=== PATIENT | female | born 1945 | race Caucasian/White ===

== ENCOUNTER → 2018-07-11 | Outpatient (CLI) | payer OTHER ==
[~2018-07-11] MED LIST: HYDROCHLOROTH12.5 M1 PO; IBUPROFEN 800800 M1 PO; NORCO 10-325 T1 EACH PO; XARELTO10 MG PO
== END ==
LOC: MRI 09:42 → EDSTATUS 09:43 → MRI 12:20
DX: S96.812A Strain of other specified muscles and tendons at ankle and foot level, left foot, initial encounter (principal); X58.XXXA Exposure to other specified factors, initial encounter; Y93.89 Activity, other specified; Y92.89 Other specified places as the place of occurrence of the external cause; Y99.8 Other external cause status

== ENCOUNTER → 2020-03-18 | Outpatient (CLI) | payer OTHER ==
[~2020-03-18] MED LIST changes: +ASPIR 8181 MG PO; +COLACE 100 MG100 MG PO; +COZAAR 25 MG TA25 M1 PO; +HYDROCODON-ACE1 EAC7 PO; +MS CONTIN15 MG PO; +NEURONTIN 300M300 M2 PO; +ROBAXIN 750 MG750 MG PO
--- NOTE | 2020-03-19 14:17 | EKG ---
[facility] [place] [address] ELECTROCARDIOGRAM REPORT Name: AMAN HEMPHILL Room #: PRE [facility].Chandrika#: [id number] Admission: Attend Phys: Ankit Wiggins MD Discharge: Date of : 43 Report #: [id number] THIS REPORT FOR: cc: Chema Maurice MD, David B. MD Santiago,Brett [facility] ~ THIS REPORT FOR: //name// [facility] ED Test Date: 2020-03-18 Test Time: 11:03:34 Pat Name: AMAN HEMPHILL Department: Room: Gender: Leather Piece Inspector: kkbob white : 1945 Requested By: Ankit Wiggins Order Number: [id number] MD: Brett Muniz Measurements Intervals [place] Rate: 125 P: 69 [place]: 141 QRS: 6 QRSD: 82 T: 4 QT: 323 QTc: 466 Interpretive Statements Sinus tachycardia Abnormal R-wave progression, late transition Consider left ventricular hypertrophy Compared to ECG 02/11/2014 11:10:49 Sinus rhythm no longer present ST (T wave) deviation no longer present Electronically Signed On 03-19-2020 14:17:20 MAGNETIC OBSERVER by Brett Muniz [email or web address] <ELECTRONICALLY SIGNED> By: Brett Muniz MD, FACC 03/19/20 1417 1103 1103 Brett Muniz MD, FACC /EPI
== END ==
LOC: LAB
PROVIDERS: ATTEND Orthopaedic Surgery
DX: Z01.812 Encounter for preprocedural laboratory examination (principal); Z20.828 Contact with and (suspected) exposure to other viral communicable diseases; R00.0 Tachycardia, unspecified

== ENCOUNTER 2020-03-23 09:36 | Day surgery (SDC) | payer OTHER ==
[2020-03-18 11:19] LABS: HEMATOCRIT 40.9 % (37.0-47.0); HEMOGLOBIN 13.8 gm/dL (12.0-15.0); MCH 32.4 pg (26.0-34.0); MCHC 33.8 g/dL (28.0-37.0); RBC 4.27 mil/uL (4.20-5.00)
[2020-03-18 11:19] LABS: URINE BILIRUBIN NEGATIVE (Negative); URINE BLOOD TRACE (Negative); URINE CLARITY CLEAR; URINE COLOR YELLOW; URINE GLUCOSE-RANDOM* NEGATIVE (Negative); URINE KETONES NEGATIVE (Negative); URINE PROTEIN (DIPSTICK) NEGATIVE (Negative); URINE SPECIFIC GRAVITY <= 1.005 (1.005-1.035); URINE UROBILINOGEN 0.2 E.U./dl (0.2-1.0)
[2020-03-18 11:21] LABS: URINE LEUKOCYTES-REFLEX 3+ (Negative); URINE NITRITE-REFLEX POSITIVE (Negative)
[2020-03-18 11:29] LABS: ALBUMIN 4.1 g/dL (3.4-5.0); CALCIUM 8.8 mg/dL (8.5-10.1); CREATININE 0.8 mg/dL (0.6-1.0); POTASSIUM 3.9 mmol/L (3.5-5.1)
[2020-03-18 11:34] LABS: PROTIME 10.2 Seconds (9.3-11.4)
[2020-03-18 11:45] LABS: CASTS None Seen /LPF (None Seen); CRYSTALS None Seen /LPF (None Seen); SQUAMOUS 0-3 Few /LPF (0-3)
[2020-03-18 11:46] LABS: BACTERIA-REFLEX 1-9 Few /HPF (None Seen); URINE RBC 0-2 Rare /HPF (0-2)
--- NOTE | 2020-03-18 13:37 | EKG ---
[facility] [place] [address] ELECTROCARDIOGRAM REPORT Name: HEMPHILLAMAN Room #: PRE [facility] [place]..#: [id number] Admission: Attend Phys: Ankit Wiggins MD Discharge: Date of : 43 Report #: [id number] THIS REPORT FOR: cc: Chema Maurice MD, David B. MD Santiago, Patrick MD [facility] ~ THIS REPORT FOR: //name// [facility] Test Date: 2020-03-18 Test Time: 11:16:36 Pat Name: AMAN HEMPHILL Department: Room: Gender: F Loader Operator Supervisor: DU : 1945 Requested By: Ankit Wiggins Order Number: [id number] MD: Brett Muniz Measurements Intervals [place] Rate: 64 P: 5 [place]: 185 QRS: -5 QRSD: 92 T: -7 QT: 396 QTc: 409 Interpretive Statements Sinus rhythm Borderline T abnormalities, inferior leads Baseline wander in lead(s) I,aVL Compared to ECG 02/11/2014 11:10:49 T-wave abnormality now present ST (T wave) deviation no longer present Electronically Signed On 03-18-2020 13:37:01 SALES DEPARTMENT CLERK by Brett Muniz [email or web address] <ELECTRONICALLY SIGNED> By: Brett Muniz MD, FACC 03/18/20 1337 15 111 Brett Muniz MD, FACC /EPI
[~2020-03-23] VITALS: Ht 165.1 cm; Wt 76.7 kg
[~2020-03-23 09:36] MED LIST changes: -ASPIR 8181 MG PO; -COLACE 100 MG100 MG PO; -HYDROCODON-ACE1 EAC7 PO; -MS CONTIN15 MG PO; -NEURONTIN 300M300 M2 PO; -ROBAXIN 750 MG750 MG PO
[2020-03-23 10:33] VITALS: BP 137/89
[2020-03-23 14:50] VITALS: BP 153/94
--- NOTE | 2020-03-23 16:54 | NUR ---
PATIENT ADMITTED TO ROOM 435, CAME FROM POST OP REPORT RECIEVED.PT ALERT XS 4 LIKES TO TALK STATES I LIVE ALONE AND WHEN I GET THE CHANCE TO TALK I DO. V.S. 98.1 20 72 153/94 O2 SAT = 100% 2 L/NC PT IS REGULAR DIET FOR DINNER IS DRINKING FLUIDS. GIVEN PRN PAIN MED ORDERED. WEIGHT = 169.0 HEIGHT = 5' 5 " HAS PICCO DRESSING TO RIGHT HIP [facility] AND SCDS IN PLACE FLUIDS INFUSING ORDERED. ICE PACK TO RIGHT HIP.
[2020-03-23 19:12] VITALS: BP 127/80
--- NOTE | 2020-03-24 04:27 | NUR ---
PT ALERT AND ORIENTED. NICHOL DRSG TO R HIP IS C/D/I. ICE RICHA IN PLACE WELL SCDS. PT ABLE TO GET UP TO THE BSC. VOIDING WITH NO DIFFICULTIES. AFEBRILE. PAIN CONTROLLED WITH HYDROCODONE. CALL LIGHT WITHIN REACH.
[2020-03-24 06:59] LABS: HEMATOCRIT 32.8 % (37.0-47.0); MCH 32.5 pg (26.0-34.0); MCHC 33.6 g/dL (28.0-37.0); MCV 96.6 fL (80.0-100.0); RBC 3.39 mil/uL (4.20-5.00); RDW 13.2 % (10.5-14.5); WBC 13.5 thou/uL (4.0-11.0)
--- NOTE | 2020-03-24 10:59 | NUR ---
PT IS AOX4, VSS, PAIN IN RIGHT HIP CONTROLLED WITH ORAL PAIN ANALGESIC. PT IS UP WITH STANDBY ASSIST. WORKING WELL WITH PT/OT. IV DISCONTINUED, PT GOING HOME AFTER AFTERNOON THERAPY SESSION. PT DENIES N/V, NICHOL DRESSING ON RIGHT HIP APPEARS CDI. ARMOND DHILLON ARE ON BLE. CALL LIGHT IN REACH, WILL CONTINUE TO MONITOR.
--- NOTE | 2020-03-24 11:02 | NUR ---
ASSESSMENT: CM REVIEWED CHART. PT IS S/P R DAGO. PT REPORTS LIVING IN A HOUSE ALONE. PT REPORTS TWO STEPS WITH NO HANDRAIL TO ENTER AND NO STEPS SHE HAS TO USE ONCE INSIDE. PT REPORTS THAT HER SON IS VERY SUPPORTIVE AND HELPFUL AND CAN ASSIST HER IF NEEDED. PT REPORTS SHE NORMALLY IS INDEPENDENT WITH ADLS AND AMBULATION BUT DOES HAVE A CANE AND WALKER AT HOME THAT SHE WILL USE. PT REPORTS SHE HAS OUTPATIENT THERAPY ARRANGED AT [facility] FOR 1PM TOMORROW. PT REPORTS HAVING A GRAB BAR IN THE SHOWER. PT IS DOING WELL WITH THERAPY AND POSSIBLE DISCHARGE LATER THIS AFTERNOON. PT REPORTS HAVING NO NEEDS FROM CM.
[2020-03-24 15:03] VITALS: BP 127/80
--- NOTE | 2020-03-25 08:16 | O ---
[facility] [place] [address] OPERATIVE REPORT Name: AMAN HEMPHILL Room #: DEP [facility].#: [id number] Admission: 03/23/20 Attend Phys: Ankit Wiggins MD Discharge: 03/24/20 Date of : 43 Report #: [id number] THIS REPORT FOR: cc: Chema Maurice MD, David B. MD Abraham,Ankit Garcia MD ~ CC: Chema Wiggins DATE OF SERVICE: 03/23/2020 PREOPERATIVE DIAGNOSIS: Right hip osteoarthritis. POSTOPERATIVE DIAGNOSIS: Right hip osteoarthritis. PROCEDURE: Right total hip arthroplasty. SURGEON: Ankit Wiggins MD. FACIAL OPERATOR: Dominique Cornelius PA-C. INDICATIONS FOR FACIAL OPERATOR: Throughout the case, extensive retraction and manipulation of the hip including dislocation and reduction was required. This was afforded by my medical office assistant. ANESTHESIA: LMA. IMPLANTS: Segovia and Nephew size 12 high offset Synergy press fit stem, a size 52 R3 acetabular cup with 2 acetabular screws, size 36+0 cobalt chrome head and an Arthrex FiberTape for prophylactic femur fixation. ESTIMATED BLOOD LOSS: 100 mL. COMPLICATIONS: None. SPECIMENS: None. CONDITION UPON LEAVING THE OPERATING ROOM: Stable. INDICATIONS FOR PROCEDURE: The patient is a 74-year-old female with right hip osteoarthritis. She had failed conservative measures for this and after discussion with her, she elected for right total hip arthroplasty. DESCRIPTION OF PROCEDURE: Risks, benefits, alternatives, complications were discussed in detail with the patient including but not limited to risk of anesthesia, risk of damage to nerves, arteries, blood vessels, risk for [facility] [address] [place] [address] OPERATIVE REPORT Name: AMAN HEMPHILL Room #: DEP [facility].#: [id number] Admission: 03/23/20 Attend Phys: Ankit Wiggins MD Discharge: 03/24/20 Date of : 43 Report #: [id number] infection, bleeding, risk for leg length discrepancy, instability and need for reoperation. Informed consent was obtained from the patient. The right hip was appropriately marked in the preoperative holding area. IV Ancef was given for preoperative antibiotics. She was brought to the operating room and placed in the supine position on operating room table. LMA anesthesia was induced without complication. She was placed in the left lateral decubitus position with the right hip uppermost. Right hip and lower extremity were prepped and draped in normal sterile fashion. Timeout was performed properly identifying the patient and procedure as well as the instrumentation and implants. All in the operating room were in agreement. Standard posterior approach to the hip was made with 10 blade through the skin. Dissection was taken down to the fascia with Bovie cautery and Conrad elevator was used to clean off the fascia. Fresh 10 blade was used to make a fascial incision. This was taken proximally and distally with curved Tovar scissors. Charnley retractor was placed. Trochanteric bursa was taken down with Bovie cautery. Piriformis tendon was identified, tagged and taken down with Bovie cautery. Short external rotators were also taken down with Bovie cautery. Capsulotomy was made and capsule ends were tagged for later repair. Hip was dislocated. There was obvious osteoarthritic change of the femoral head. A femoral neck cut was made 1 cm proximal to lesser trochanter based on preoperative templating. The femoral head was removed. Deep acetabular retractors were placed. Labrum was removed sharply. Pulvinar was removed with Bovie cautery. Acetabulum was sequentially reamed up to a size 52, at which point there was excellent bleeding cancellous bone. A size 51 trial cup was placed, found to have a good fit. A final size 52 R3 acetabular cup was placed and seated. Two acetabular screws were placed for backup fixation and polyethylene liner for a 36 head was placed. Attention was then turned to the femur. One cerclage Arthrex FiberTape was placed around the proximal femur for prophylactic fixation. The femur was reamed and broached up to a size 12, at which point the size 12 was stable, was trialed with a high offset neck and a 36+0 head. Hip was reduced, taken through range of motion, found to be stable, found to have equal leg lengths. Hip was dislocated. The broach was removed and final size 12 high offset Synergy press-fit stem was placed and seated. This was trialed again with a 36+0 head. Hip was reduced, taken through range of motion, found to be stable, found to have equal leg lengths. Hip was dislocated one last time and a final size 36+0 cobalt chrome head was placed. Hip was reduced, taken through range of motion, found to be stable, found to have equal leg lengths. Hip was thoroughly irrigated with normal saline. Periarticular injection consisting of morphine, ropivacaine, epinephrine and Toradol was placed over the capsule. A gram of vancomycin was placed deep in the joint. The capsule and piriformis were repaired with 0 FiberWire. Fascia was closed with 0 Vicryl, skin was closed with 2-0 Vicryl, 3-0 Monocryl. Dermabond and a NICHOL dressing were applied. The patient tolerated this [facility] [address] [place] [address] OPERATIVE REPORT Name: AMAN HEMPHILL Roger Room #: [facility]P [facility].#: [id number] Admission: 03/23/20 Attend Phys: Ankit Wiggins MD Discharge: 03/24/20 Date of : 43 Report #: [id number] procedure well and went to recovery room under care of anesthesia postoperatively. <ELECTRONICALLY SIGNED> By: Ankit Wiggins MD 03/25/20 0816 1607 1755 Ankit Wiggins MD /nt
== END 2020-03-24 16:28 | disposition home or self-care (01) ==
LOC: OR 09:36 → 4S 14:41 → OR 03-24 16:28
PROVIDERS: ATTEND Orthopaedic Surgery
DX: M16.11 Unilateral primary osteoarthritis, right hip (principal); M25.551 Pain in right hip; I10 Essential (primary) hypertension; G43.909 Migraine, unspecified, not intractable, without status migrainosus; G20 Parkinson's disease; Z98.890 Other specified postprocedural states; Z79.899 Other long term (current) drug therapy; Z86.73 Personal history of transient ischemic attack (TIA), and cerebral infarction without residual deficits; Z96.651 Presence of right artificial knee joint; Z90.710 Acquired absence of both cervix and uterus; Z98.41 Cataract extraction status, right eye; Z98.42 Cataract extraction status, left eye; Z88.8 Allergy status to other drugs, medicaments and biological substances
CPT/HCPCS: 27130; C1713; 10102; 50010; 50101; 50382; 50414; 53000; 53078; 53367; 54118; 56524; 56527; 56528; 56530; 57095; 57103; 62110; 62900; 70005

== ENCOUNTER 2020-03-24 22:11 | Inpatient (IN) | payer OTHER ==
[~2020-03-24] VITALS: Ht 165.1 cm; Wt 81.2 kg
[2020-03-24 22:13] VITALS: BP 142/63
[2020-03-25 01:04] LABS: ABSOLUTE NEUTROPHILS 8.5 thou/uL (1.4-8.2); BASOPHILS 0.3 % (0.0-2.0); EOSINOPHILS 0.5 % (0.0-3.0); HEMATOCRIT 31.2 % (37.0-47.0); HEMOGLOBIN 10.6 gm/dL (12.0-15.0); LYMPHOCYTES 20.7 % (24.0-44.0); MCH 32.5 pg (26.0-34.0); MCHC 33.9 g/dL (28.0-37.0); MCV 95.8 fL (80.0-100.0); MONOCYTES 8.4 % (1.0-8.0); PLATELET COUNT 226 thou/uL (150-400); POLYS 70.1 % (36.0-66.0); RBC 3.26 mil/uL (4.20-5.00); RDW 13.2 % (10.5-14.5); WBC 12.1 thou/uL (4.0-11.0)
[2020-03-25 01:13] LABS: CALCIUM 8.4 mg/dL (8.5-10.1); POTASSIUM 3.3 mmol/L (3.5-5.1)
[2020-03-25 01:19] LABS: URINE BILIRUBIN NEGATIVE (Negative); URINE BLOOD NEGATIVE (Negative); URINE CLARITY CLEAR; URINE COLOR YELLOW; URINE GLUCOSE-RANDOM* NEGATIVE (Negative); URINE KETONES NEGATIVE (Negative); URINE LEUKOCYTES-REFLEX NEGATIVE (Negative); URINE NITRITE-REFLEX NEGATIVE (Negative); URINE PROTEIN (DIPSTICK) NEGATIVE (Negative); URINE UROBILINOGEN 0.2 E.U./dl (0.2-1.0)
[2020-03-25 02:47] VITALS: BP 126/67
[2020-03-25 02:53] VITALS: BP 120/63
--- NOTE | 2020-03-25 04:39 | NUR ---
PT ARRIVED ON THE UNIT THIS MORNING. A&OX4. WITH C/O PAIN IN RT HIP. IV FENTANYL GIVEN. PT ON BEDREST. EXT FEMALE CATH IN PLACE AND DRAINING. RT HIP NICHOL DRESSING C/D/I. ADMISSION DONE AND PT ORIENTED TO THE UNIT. NO SKIN ISSUES. VSS. CLEAR LUNGS SOUND. TEDHOSE ON BLE. DENIES NAUSEA/VOMITING. FALL PREC IN PLACE AND CALL LIGHT IN REACH WILL CONT WITH POC TILL EOS.
[2020-03-25 05:31] VITALS: BP 119/72
[2020-03-25 07:02] LABS: HEMATOCRIT 31.9 % (37.0-47.0); HEMOGLOBIN 10.6 gm/dL (12.0-15.0); MCH 32.1 pg (26.0-34.0); MCHC 33.3 g/dL (28.0-37.0); MCV 96.3 fL (80.0-100.0); RBC 3.31 mil/uL (4.20-5.00); RDW 13.5 % (10.5-14.5); WBC 10.7 thou/uL (4.0-11.0)
[2020-03-25 07:14] LABS: CALCIUM 8.5 mg/dL (8.5-10.1); CREATININE 0.7 mg/dL (0.6-1.0); POTASSIUM 3.5 mmol/L (3.5-5.1)
[2020-03-25 08:05] VITALS: BP 129/71
--- NOTE | 2020-03-25 12:15 | NUR ---
I have reviewed the documentation by GINO GEORGE from 03/24/20 to 03/24/20 and I concur with it. AMY HAQUE
--- NOTE | 2020-03-25 13:07 | NUR ---
ASSESSMENT: CM REVIEWED CHART. PT WAS JUST DISCHARGED ON 03/24 S/P R DAGO. PT REPORTS SHE FELT SOMETHING BUCKLE WHEN GETTING IN THE CAR AND WAS IN PAIN AND RETURNED TO [facility]. PT STATES THAT SHE LIVES IN A HOME ALONE. PT REPORTS TWO STEPS WITH NO HANDRAIL TO ENTER AND NO STEPS SHE HAS TO USE ONCE INSIDE. PT REPORTS THAT HER SON IS VERY SUPPORTIVE AND HELPFUL AND CAN ASSIST HER IF NEEDED. PT REPORTS SHE NORMALLY IS INDEPENDENT WITH ADLS AND AMBULATION BUT DOES HAVE A CANE AND WALKER AT HOME THAT SHE WILL USE. PT HAD OUTPATIENT THERAPY ARRANGED AT [facility]. PT REPORTS HAVING A GRAB BAR IN THE SHOWER. PT IS TO HAVE CT AND WILL WORK WITH THERAPY TO DETERMINE DISCHARGE NEEDS. CM WILL CONTINUE TO FOLLOW TO ASSIST NEEDED.
--- NOTE | 2020-03-25 15:26 | NUR ---
Assumed care of pt. at 0700. Pt. was calm and cooperative. Pt. complained of pain at a "12". Dr. Barth notified, med given, pain relieved partially. Pt. asked about when she could speak with Dr. Wiggins. Kate ROSARIO contacted, notified Feliciano would come by after their surgery.
[2020-03-25 16:00] VITALS: BP 128/82
[2020-03-25 19:14] VITALS: BP 136/72
[2020-03-26] VITALS (7 sets, daily range): BP systolic 105–128; BP diastolic 63–72
--- NOTE | 2020-03-26 02:29 | NUR ---
ASSESSED AT START OF SHIFT. PT IN BED. C/O PAIN 12/15 MANAGED WITH IV AND PO MEDS. PT TO HAVE SX TOMORROW. NPO AT MIDNIGHT. IV INTACT AND SL. EXT FEMASLE CATH IN PLACE. DENIES N/V FALL PREC IN PLACE AND CALL LIGHT IN REACH WILL CONT TO MONITOR
--- NOTE | 2020-03-26 10:04 | NUR ---
ASSUMED CARE AT 0700. PATIENT IS ALERT AND ORIENTED X4. PATIENT HAS FX RIGHT FEMUR. PICCO DRESSING IN PLACE. PATIENT REMAINS NPO FOR SURG THIS AFTERNOON. FALL AND SAFETY PROTOCOLS IN PLACE. C/O FEMUR PAIN. MEDICATED WITH PRN PAIN MED IVP. PATIENT CONTINUES ON BR AT THIS TIME. S.L. IN PATIENTS LEFT AC PATENT AND INTACT. WILL CONTINUE TO MONITER.
--- NOTE | 2020-03-26 12:49 | NUR ---
on-going assessment: CM REVIEWED CHART. PT IS TO HAVE REVISION OF R DAGO STEM THIS AFTERNOON. PT THEN WILL WORK WITH PT/OT. 5N IS FOLLOWING PATIENT. CM WILL CONTINUE TO FOLLOW TO ASSIST NEEDED.
--- NOTE | 2020-03-26 18:33 | NUR ---
4563 PATIENT RETURNED FROM SURGERY. PATIENT IS ALERT AND ORINETED X4. PATIENT FORTUNE, ELECTRICAL INSTALLER ARE EQUAL. LUNGS ARE CLEAR AND DEMINISHED. PATIENT STARTED ON RESPITORY TX. IV FLUIDS D5 1/2NS STARTED AT 100 CC/HR. IV MSO4 AND PEPCID GIVEN. REQUESTED. NICHOL DRESSING INTACT. REGULAR DINNER SERVED. IV IN PATIENTS LEFT AC. IV SITE WITHOUT REDNESS OR SWELLING. WILL CONTINUE TO MONITER.
[2020-03-27 03:37] LABS: HEMATOCRIT 28.8 % (37.0-47.0); HEMOGLOBIN 9.9 gm/dL (12.0-15.0); MCH 32.7 pg (26.0-34.0); MCHC 34.2 g/dL (28.0-37.0); MCV 95.4 fL (80.0-100.0); RBC 3.02 mil/uL (4.20-5.00); RDW 12.9 % (10.5-14.5); WBC 9.9 thou/uL (4.0-11.0)
--- NOTE | 2020-03-27 04:09 | NUR ---
ASSESSMENT COMPLETED.PT IS PLEASNT AND COOPERATIVE. EXTERNAL CATH IN PLACE AND SHE IS VOIDING ADEQUATELY.R HIP WITH DRSG C/D/I. R FOOT WITH GOOD CSM STABLE ON ROOM AIR. AFEBRILE, CALL LIGHT WITHIN REACH.
[2020-03-27 04:26] VITALS: BP 103/68
[2020-03-27 07:00] VITALS: BP 123/74
[2020-03-27] MEDS ORDERED: HYDROCODON-ACE1 EAC7 PO (10:32)
[2020-03-27] MEDS ORDERED: MS CONTIN15 MG PO (10:32)
[2020-03-27] MEDS ORDERED: NEURONTIN 300M300 M2 PO (10:32)
[2020-03-27] MEDS ORDERED: COLACE 100 MG100 MG PO (10:32)
[2020-03-27] MEDS ORDERED: ROBAXIN 750 MG750 MG PO (10:32)
[2020-03-27] MEDS ORDERED: ASPIR 8181 MG PO (10:32)
--- NOTE | 2020-03-27 10:54 | NUR ---
ON-GOING ASSESSMENT: CM REVIEWED CHART AND SPOKE WITH ATTENDING WELL 5N LIASON. PT IS MEDICALLY STABLE FOR DISCHARGE TODAY AND 5N CAN ACCEPT HER. PT REPORTS SHE WILL NOTIFY HER SON. LIASON IS AWARE THAT ORDERS ARE IN AND PATIENT IS TO TRansfer to ACUTE REHAB TODAY.
[2020-03-27 15:40] VITALS: BP 101/61
--- NOTE | 2020-03-27 17:14 | NUR ---
PT IS AOX4, VSS, PAIN CONTROLLED WITH ORAL PAIN ANALGESIC FOR HIP. IV IN LEFT AC IS PATENT/SL. REHAB ASKED TO KEEP IV, PT UP TO BSC WITH STANDBY ASSIST AND WALKER. PT CALLS APPROPRIATELY. DRESSING ON RIGHT HIP IS CDI. PT D/C TO REHAB UNIT. BELONGINGS PACKED AND SENT WITH PT.
--- NOTE | 2020-03-31 12:39 | O ---
[facility] [place] [address] OPERATIVE REPORT Name: AMAN HEMPHILL Room #: 434-P [facility] M.R.#: [id number] Admission: 03/25/20 Attend Phys: Jerry Barth MD Discharge: 03/27/20 Date of : 43 Report #: [id number] THIS REPORT FOR: cc: Chema Maurice MD, David B. MD Abraham, Scott M. MD ~ CC: Jerry Maurice DATE OF SERVICE: 03/26/2020 PREOPERATIVE DIAGNOSIS: Right proximal femur repair of periprosthetic total hip arthroplasty fracture. POSTOPERATIVE DIAGNOSIS: Right proximal femur repair of periprosthetic total hip arthroplasty fracture. PROCEDURES: 1. Revision of right total hip arthroplasty stem only. 2. ORIF, right proximal femur with cerclage cables. ESTIMATED BLOOD LOSS: 150 mL. IMPLANTS: Segovia and Nephew size 14 high offset cemented Synergy stem with a size 36, -3 cobalt chrome and 3 Accord cables for femoral fixation. COMPLICATIONS: None. SPECIMENS: None. CONDITION UPON LEAVING THE OPERATING ROOM: Stable. INDICATIONS FOR PROCEDURE: The patient is a 74-year-old female who is 4 days out from a right total hip arthroplasty. She was discharged home and on the evening of discharge, she has noted a buckling of her leg and increasing thigh pain. She was readmitted to the hospital and found to have a periprosthetic proximal femoral fracture around her femoral stem that was nondisplaced. After discussion with her, she elected for revision hip arthroplasty fixation of the proximal femur fracture. DESCRIPTION OF PROCEDURE: Risks, benefits, alternatives, complications were discussed in detail with the patient including but not limited to risk of anesthesia, risk of damage to nerves, arteries, blood vessels, risk for infection, bleeding, risk for continued hip pain, leg length discrepancy, instability and need for reoperation. Informed consent was obtained from the patient. The right hip was appropriately marked in the preoperative holding [address] [address] OPERATIVE REPORT Name: KANCHANAMAN Roger Room #: 434-P [facility] ..#: [id number] Admission: 03/25/20 Attend Phys: Jerry Barth MD Discharge: 03/27/20 Date of : 43 Report #: [id number] area. IV Ancef was given for preoperative antibiotics. She was brought to the operating room and placed in supine position on operating room table. LMA anesthesia was induced without complication. She was then placed in the left lateral decubitus position with the right hip uppermost. Right hip and lower extremity were prepped and draped in normal sterile fashion. Timeout was performed properly identifying the patient and procedure as well as the instrumentation and implants. All in the operating room were in agreement. Previous incision was used and this was opened with a 10 blade through the skin. Dissection was taken down to the fascia with Bovie cautery. Fascial incision was opened with a 10 blade and taken distally along the IT band. This was a nondisplaced fracture and it was decided to pass cerclage cables first. The vastus lateralis was split longitudinally and a cable passer was used to place 2 cables distal to the lesser trochanter, 1 cable proximal to lesser trochanter. These were then tensioned and locked in place. The hip was then dislocated and the femoral stem was removed. The integrity of the femur was assessed and found to have good integrity based on the fixation of the cables that were placed and the femur was then reamed and broached up to a size 14 trial with a high offset neck and a 36, +0 head. Hip was reduced, taken through range of motion, found to be stable. A cross-table AP x-ray was taken to verify adequate placement of the broach as well as hindu of the proximal femur as was the case. Hip was dislocated and the femoral canal was repaired for cement, a size 14 high offset Synergy cemented stem was then cemented in place using standard cementation techniques. After the cement cured, this was trialed with a 36, +0 head and then a 36, -3 head and 36, -3 head had better stability and leg lengths. Hip was dislocated and a final size 36, -3 cobalt chrome head was placed. Hip was reduced, taken through range of motion, found to be stable, found to have equal leg lengths. The wound was thoroughly irrigated with normal saline. The capsule was repaired with 0 FiberWire. The fascia was closed with 0 Vicryl, skin was closed with 2-0 Vicryl, skin staple and a NICHOL dressing was applied. The patient tolerated this procedure well and went to recovery room under care of anesthesia postoperatively. <ELECTRONICALLY SIGNED> By: Ankit Wiggins MD 03/31/20 1239 2104 0041 Ankit Wiggins MD /cole
== END 2020-03-27 17:12 | DRG 464 ==
LOC: ER 22:11 → 4S 03-25 02:16 → EROBS 03-25 02:16 → 4S 03-25 02:54
PROVIDERS: Emergency Medicine; Nurse Practitioner Family; Orthopaedic Surgery; ADMIT Hospitalist; ATTEND Hospitalist
PROC: 0QS604Z Reposition Right Upper Femur with Internal Fixation Device, Open Approach (ICD-10-PCS; principal; 2020-03-26)
PROC: 0SP90JZ Removal of Synthetic Substitute from Right Hip Joint, Open Approach (ICD-10-PCS; principal; 2020-03-26)
DX: M97.01XA Periprosthetic fracture around internal prosthetic right hip joint, initial encounter (principal); D62 Acute posthemorrhagic anemia; I10 Essential (primary) hypertension; G43.909 Migraine, unspecified, not intractable, without status migrainosus; Z96.651 Presence of right artificial knee joint; Z96.641 Presence of right artificial hip joint; Z60.2 Problems related to living alone; M81.0 Age-related osteoporosis without current pathological fracture; K59.00 Constipation, unspecified; G47.00 Insomnia, unspecified; E87.6 Hypokalemia; Z90.710 Acquired absence of both cervix and uterus; Z86.73 Personal history of transient ischemic attack (TIA), and cerebral infarction without residual deficits; Z98.42 Cataract extraction status, left eye; Z98.41 Cataract extraction status, right eye; Z88.6 Allergy status to analgesic agent; Z88.8 Allergy status to other drugs, medicaments and biological substances; Z87.891 Personal history of nicotine dependence; Z79.899 Other long term (current) drug therapy; Z79.82 Long term (current) use of aspirin
CPT/HCPCS: 10102; 50010; 50101; 50382; 50414; 51057; 51130; 51225; 51226; 53000; 53078; 54118; 56460; 56524; 56527; 56528; 56530; 57095; 57103; 62110; 62900; 70005

== ENCOUNTER 2020-03-27 13:26 | Inpatient (IN) | payer OTHER ==
[~2020-03-27] VITALS: Ht 165.1 cm; Wt 74.8 kg
[~2020-03-27 13:26] MED LIST changes: +ASPIR 8181 MG PO; +COLACE 100 MG100 MG PO; +HYDROCODON-ACE1 EAC7 PO; +MS CONTIN15 MG PO; +NEURONTIN 300M300 M2 PO; +ROBAXIN 750 MG750 MG PO
[2020-03-27 17:00] VITALS: BP 121/69
--- NOTE | 2020-03-27 18:17 | NUR ---
PT ARRIVED AT 1700 FROM 4S. PT IS ALERT AND ORIENTED* 4, PLEASANT. VITALS ARE STABLE. PT DENIES PAIN AT THIS TIME. RIGHT HIP INCISION REMAINS DRY AND INTACT. PT ATE 100% OF HER DINNER, DENIES N&V, GOOD APPETITE. TRANSFERED VIA RECLINER, NOT ABLE TO GET UP AT THIS TIME. FALL PRECAUTIONS IN PLACE. HOURLY ROUND. CALL LIGHT WITHIN REACH
[2020-03-27 22:00] VITALS: BP 105/60
--- NOTE | 2020-03-28 04:21 | NUR ---
ASSUMED CARE APPROX 1900 EVENING 03/27. PT SITTING IN RECLINER AT CHANGE OF SHIFT, ALERT AND ORIENTED X4, APPROPRIATE AND COOPERATIVE. PT UP TO BATHROOM WITH WALKER TO VOID BEFORE GETTING INTO BED AT HS. PT TOOK HS MEDS WITH WATER TOLERATING WELL. DRESSING TO RIGHT HIP C/D/I. PT APPEARS TO BE SLEEPING SOUNDLY WITH HOURLY ROUNDING CHECKS. BED ALARM ON AND CALL LIGHT IN REACH. WILL CONTINUE TO MONITOR.
[2020-03-28 05:23] LABS: HEMATOCRIT 26.7 % (37.0-47.0); MCH 32.7 pg (26.0-34.0); MCHC 33.9 g/dL (28.0-37.0); MCV 96.5 fL (80.0-100.0); RBC 2.76 mil/uL (4.20-5.00); RDW 13.3 % (10.5-14.5); WBC 9.8 thou/uL (4.0-11.0)
[2020-03-28 05:59] LABS: CALCIUM 8.5 mg/dL (8.5-10.1); CREATININE 0.8 mg/dL (0.6-1.0); POTASSIUM 4.1 mmol/L (3.5-5.1)
[2020-03-28 06:48] LABS: FOLIC ACID 9.2 ng/mL (8.6-58.9)
[2020-03-28 07:15] VITALS: BP 116/76
[2020-03-28 19:19] VITALS: BP 122/70
--- NOTE | 2020-03-28 20:09 | NUR ---
ASSUMED CARE OF PT AT 0700. PT IS A&OX4 AND VITAL SIGNS ARE STABLE. PT REPORTS PAIN TO RIGHT HIP, MEDICATION ORDERS CHANGED THIS SHIFT AND PT REPORTS BETTER PAIN CONTROL AT THIS TIME. PT REPORTED NAUSEA THIS SHIFT, REPORTED NO BM IN 5+DAYS, SUPPOSITORY AND BOWEL MEDICATIONS PROVIDED AND PT HAD SEVERAL LARGE BOWEL MOVEMENTS THIS AFTERNOON. NICHOL DRESSING IN PLACE. PT CALLS APPROPRIATELY FOR ASSISTANCE. FALL PRECAUTIONS IN PLACE AND NURSING WILL CONTINUE TO MONITOR.
--- NOTE | 2020-03-29 02:25 | NUR ---
PT ASSESSMENT COMPLETED AND VSS. MEDS GIVEN ORDERED AND WELL TOLERATED. FALL PRECAUTIONS IN PLACE. UP TO THE BSC WITH ASST/GAIT/WALKER. PT HAS A LOT OF PAIN WHEN GETTING TO THE BSC. VOIDING LARGE AMOUNT OF YELLOW URINE. PRN AND SCHEDULED PAIN MEDICATION HELPFUL. NICHOL DRESSING DRY AND INTACT. SLEEPING WELL. WILL CONTINUE TO MONITOR FREQUENTLY.
[2020-03-29 05:26] LABS: ABSOLUTE NEUTROPHILS 4.9 thou/uL (1.4-8.2); BASOPHILS 0.5 % (0.0-2.0); EOSINOPHILS 2.3 % (0.0-3.0); HEMATOCRIT 26.5 % (37.0-47.0); HEMOGLOBIN 9.1 gm/dL (12.0-15.0); LYMPHOCYTES 33.1 % (24.0-44.0); MCHC 34.4 g/dL (28.0-37.0); MCV 95.8 fL (80.0-100.0); PLATELET COUNT 288 thou/uL (150-400); POLYS 54.1 % (36.0-66.0); RBC 2.77 mil/uL (4.20-5.00); RDW 13.2 % (10.5-14.5)
[2020-03-29 05:40] LABS: CALCIUM 8.5 mg/dL (8.5-10.1); CREATININE 0.6 mg/dL (0.6-1.0); MAGNESIUM 2.1 mg/dL (1.8-2.4); PHOSPHORUS 4.2 mg/dL (2.5-4.9); POTASSIUM 3.9 mmol/L (3.5-5.1)
[2020-03-29 07:15] VITALS: BP 119/74
--- NOTE | 2020-03-29 14:50 | NUR ---
ASSUMED CARES AT 0700. PT AWAKE, ALERT AND ORIENTED *4. VITALS REMAIN STABLE. PT C/O RIGHT HIP PAIN, PAIN MEDICATION AND MUSCLE RELAXER ADMINISTERED ORDERED. NICHOL DRESSING REMAINS DRY AND INTACT. PT UP WITH 1 MIN ASSIST, GB AND WALKER. PARTICIPATED WELL IN ALL THERAPIES AND TOLERATED WELL. Q1H VISUAL CHECKS. CALL LIGHT WITHIN REACH. FALL PRECAUTIONS IN PLACE
[2020-03-29 19:31] VITALS: BP 126/71
--- NOTE | 2020-03-30 02:17 | NUR ---
ASSESSMENT COMPLETED. R HIP WITH NICHOL DRSG INTACT. PT WAS ABLE TO WALK TO THE BATHROOM, GAITBELT AND WALKER.SHE ALSO REQUESTED TO USE THE BSC AT SOME POINT. SHE IS VOIDING OKAY.SHE DENIES COUGH OR SOA.-REMAINS ON ROOM AIR. NO EDEMA NOTED TO BLE.SHE HAS TAKEN NORCO X 1 SO FAR FOR PAIN SHAKIRA AFTER WALKING TO THE BATHROOM.NO CONCERNS AT THIS TIME. FALL PREC IN PLACE, CALL LIGHT WITHIN REACH.
[2020-03-30 07:10] VITALS: BP 113/71
--- NOTE | 2020-03-30 12:23 | NUR ---
chart review. cy visited with cate via phone call. intro to cm, dcp and weekly team meeting. she reported " live alone, 2 steps enter home. independent. support from son. have cane, walker, grab bars and bath bench. drive vehicle and manage own medication. had [facility] 6 years ago for knee, and would during them only for therapy if needed. with covid dont want lots people in and out of my house. "/cate. active listen and support during phone call, cy passed on information to unite nurse cage supervisor about pt concerns. will cont following as needed for dc needs.
--- NOTE | 2020-03-30 14:31 | NUR ---
ASSUMED PT CARE THIS AM. PT VSS, A&OX4. PT COMPLAINS OF PAIN IN HIP, MANAGED WITH MEDS PER EMAR. PT PLEASANT, CALLS WHEN NEEDED. PT COOPERATIVE WITH STAFF. AMBULATES TO THE BATHROOM WHEN NEEDED. DRESSING C/D/I. RASH ON BACK, HYDROCORTISONE USED AND WORKING WELL. TAKES MEDS WELL, HYDRATION PROMOTED.
[2020-03-30 20:00] VITALS: BP 122/76
--- NOTE | 2020-03-31 01:40 | NUR ---
HC CREAM TO RED SPOTTED RASH ON UPPER BACK. TO TOILET WITH SBA, GAIT BELT, AND STANDBY ASSIST. NICHOL DRESSING INTACT WITH ITS BATTERY CARRIED IN POCKET. LIDODERM PATCH REMOVED, TEMPORARY ICE BAG TO KNEE EASES PAIN, BUT NOT MUCH PAIN MED. NO BM SINCE 03/29, CONSIDERED MIRALAX AND WAS INFORMED THAT SHE COULD HAVE IT DISSOLVED IN APPLE JUICE, BUT WILL WAIT UNTIL TOMORROW AM.
[2020-03-31 08:00] VITALS: BP 107/65
--- NOTE | 2020-03-31 12:47 | NUR ---
team meeting, reccomendation: new itching, starting hydrocortisone, going to start ultram for pain. anxitey reported. dc 04/10 with [facility] ( pt only ) per cate request to limmit people in her house. her son who is sammying machine operator, gets her food an lives on [address] and she brings them into the house.
--- NOTE | 2020-03-31 15:26 | NUR ---
ASSUMED CARES AT 0700. PT AWAKE, ALERT AND ORIENTED*4. VITALS REMAIN STABLE. C/O RIGHT HIP PAIN, PAIN MEDICATION AND MUSCLE RELAXER ADMINISTERED NEEDED. PT C/O ITCHING ON THE BACK, HAS A MILD RASH, HYDROCORTISONE CREAM ADMINISTERED. RIGHT HIP DRESSING REMAINS DRY AND INTACT, PATIENT APPLYING ICE NEEDED TO MANAGE PAIN. UP WITH 1 CONTACT GUARD, GB AND WALKER (WALKS SLOWLY) BUT TOLERATES WELL. Q1H VISUAL CHECKS. CALL LIGHT WITHIN REACH. FALL PRECAUTIONS IN PLACE.
[2020-03-31 19:50] VITALS: BP 116/76
--- NOTE | 2020-04-01 01:41 | NUR ---
NICHOL DRESSING TO RIGHT HIP CDI WITH FUNCTIONING BATTERY PUMP. UP TO TOILET TWICE, NOW TO COMMODE WITH MIN ASSIST. SWTICH TO ULTRAM AND MS CONTIN FOR PAIN, WITH AT LEAST MUCH PAIN CONTROL WITH HYDROCODONE AND SHE HAS NOT NOTICED ANY ITCHING TONIGHT.
[2020-04-01 08:00] VITALS: BP 93/62
--- NOTE | 2020-04-01 09:11 | NUR ---
FAXED REFERRAL TO [facility] IS NOW [facility] SPOKE WITH BRYAN IN INTAKE THEY CAN ACCEPT AT [place].
[2020-04-01 09:12] VITALS: BP 116/76
--- NOTE | 2020-04-01 15:36 | NUR ---
PATIENT REMAIN ALERT, AND ORIENTED X 3-4, ABLE TO VOICE NEED. PATIENT IS CALM, COOPERATIVE WITH CARE. LUNGS WITH DIMINISHED SOUND, BUT CLEAR TO AUSCULTATION IN ALL LOBE. BS+X4, ABD SOFT, NON-TENDER TO TOUCH. PATIENT IS EATING MEALS, AND DRINKING FLUID FAIRLY WELL. DRESSING TO RIGHT HIP REMAIN IN PLACE, NO DRAINAGE NOTED. DRAIN TUBE DISCONTINUED. PATIENT TOOK ALL MEDICATION WHOLE WITHOUT DIFFICULTY. MAGNESIUM CITRATE ONE BOTTLE GIVEN FOR C/O CONSTIPATION, AWAITING RESULT. PATIENT AMBULATES WITH ASSIST OF ROLLER WALKER, APPLYING ICE NEEDED FOR PAIN MANAGEMENT. HIP PRECAUTION IN PLACE. PATIENT DECLINE TO WEAR ARMOND HOSE AT THIS TIME. NO SIGN OF ACUTE DISTRESS NOTED, CALL LIGHT IN REACH, WILL CONTINUE TO MONITOR.
[2020-04-01 19:50] VITALS: BP 125/67
--- NOTE | 2020-04-02 02:22 | NUR ---
ASSUMED CARES AT 1900. PT AWAKE, ALERT AND ORIENTED*4. VITALS REMAIN STABLE. PT C/O RIGHT HIP PAIN 12/15, PAIN MEDICATION AND MUSCLE RELAXER ADMINISTERED ORDERED. RIGHT HIP DRESSING REMAINS DRY AND INTACT. PT HAD MULTIPLE LOOSE BM'S THIS SHIFT, MIRALAX WITHHELD. PT UP WITH MIN ASSIST, GB AND WALKER, ABLE TO POSITION RLE USING THE POULTRY PICKING MACHINE TENDER AND TOLERATES WELL. ASLEEP FROM 2200 AND SLEPT WELL THROUGH THE NIGHT. Q1H VISUAL CHECKS. CALL LIGHT WITHIN REACH. FALL PRECAUTIONS IN PLACE.
[2020-04-02 07:59] VITALS: BP 128/77
--- NOTE | 2020-04-02 19:55 | NUR ---
ASSUMED CARE OF PT AT 0700. PT IS A&OX4 AND VITAL SIGNS ARE STABLE. PT REPORTS PAIN TO RLE, PARTIALLY MANAGED WITH PO MEDICATIONS. PT REPORTED MULTIPLE BMS IN THE LAST 24 HOURS. NICHOL DRESSING TURNED OFF AND DRESSING REMAINS INTACT TO AREA. FALL PRECAUTIONS IN PLACE AND NURSING WILL CONTINUE TO MONITOR
[2020-04-02 20:12] VITALS: BP 120/69
--- NOTE | 2020-04-03 02:02 | NUR ---
MIN ASSIST WITH GAIT BELT AND WALKER, HAS LOOP DEVICE TO DIRECT RLE IN AND OUT OF BED. MS CONTIN IS CONTROLLING PAIN ADEQUATELY WITH TRAMADOL NOW FOR BREAKTHROUGH PAIN AND SCHEDULED ROBAXIN.
[2020-04-03 08:00] VITALS: BP 115/77
--- NOTE | 2020-04-03 15:29 | HC ---
[facility] [place] [address] CONSULTATION Name: AMAN HEMPHILL Room #: 505-P [facility] [place] .R.#: [id number] Admission: 03/27/20 Attend Phys: Chema Nguyen MD Discharge: Date of : 43 Report #: [id number] THIS REPORT FOR: cc: Chema Maurice MD, David B. MD Deutch,Natanael Silverio. PhD ~ DATE OF SERVICE: 03/29/2020 BEHAVIORAL STATUS EXAM AGE: 74. ATTENDING PHYSICIAN: Chema Nguyen MD PLASMA PROCESSING TECHNICIAN: Natanael Agarwal, PhD CLINICAL PRESENTATION: The patient is a 74-year-old female admitted to the rehabilitation unit with a history of right total knee replacement. She also had a right hip fracture and joint implant, left second metatarsal tendon repair and a CVA without residual symptoms, hypertension and migraine. The patient underwent a right total hip arthroplasty on 03/23/2020. She was discharged home and while transferring from wheelchair to the car, her leg buckled and she heard a pop. As the pain became more severe, [facility] and intervention. Her assessment on admission to the rehab unit is intractable right hip postoperative pain secondary to a nondisplaced periprosthetic right femur fracture, unable to ambulate due to pain, history of right total knee replacement, CVA without residual symptoms, hypertension, hypokalemia, chronic anemia. A complete description of her medical condition and history along with medications can be found in her medical record. Neuropsychological consultation was requested to provide assistance in the assessment of cognitive and emotional status and to provide recommendations and services. Prior to this most recent medical event, she was living by herself and reports having been independent with instrumental activities of daily living and driving. She has two living children. One child at age 15 from leukemia. The patient is . She had 10 siblings in her family of origin. The patient is a high school graduate. She was employed for [employer] prior to her penitentiary. TECHNIQUES UTILIZED: Clinical interview, review of medical records, staff consultation and behavioral observation, mini mental status exam 2 standard version, clock drawing. [facility] [address] [place] [address] CONSULTATION Name: AMAN HEMPHILL Roger Room #: 505-P [facility] [place] [facility]#: [id number] Admission: 03/27/20 Attend Phys: Chema Nguyen MD Discharge: Date of : 43 Report #: [id number] EXAMINATION FINDINGS: The patient was alert and cooperative with the assessment. She accurately described events surrounding her admission. There is no evidence of aphasia. Her thoughts are logical and goal oriented. There is no evidence of thought disorder. She reports that pain medication has been interfering with her cognition. She reports "brain fuzziness" that she attributes to narcotic pain medicine. Her symptoms also include difficulty with sleep, appetite and energy level. She does not report anxiety or depression. Possible difficulty with memory associated with narcotics are described. Her performance on the MMSE 2 brief version is within normal limits with a raw score of 15/16. She was 3/3 for initial registration, 5/5 for orientation to time, 4/[address] and 3/3 for immediate recall of 3 items after a brief time delay and distraction. Performance on the MMSE 2 standard version is within normal limits with a raw score of 28/30. She was 5/5 for serial sevens, 2/2 for naming, 1/1 for repetition, 3/3 for auditory comprehension. She could read and follow a single command and write a sentence. The patient had some difficulty with copying a simple geometric design. Slight difficulty with visual spatial construction. Clock drawings within normal limits. The patient is well oriented and cognitive functioning appears within normal limits. Subtle difficulty with visual spatial construction DIAGNOSTIC IMPRESSION: Subtle deficits in neurocognitive functioning possibly related to narcotic pain medicine. However, she is showing a good recovery in overall general debility. RECOMMENDATIONS: The patient may benefit from the use of behavioral pain management strategies that include breathing techniques for managing anxiety associated with her concern with falling, and redirection of attention and reframing to assist in pain management. As her pain is decreasing the need for narcotic medication will be greatly reduced, Thank you very much for allowing me to provide the consultation on this patient. <ELECTRONICALLY SIGNED> By: Natanael Agarwal, PhD 04/03/20 [id number] Natanael Agarwal, PhD /nt
--- NOTE | 2020-04-03 18:32 | NUR ---
ASSUMED CARE OF PT AT 0700. PT IS A&OX4 AND VITAL SIGNS ARE STABLE. PT REPORTS PAIN, MANAGED WITH PO MEDICATIONS. PARTICIPATED IN SCHEDULED THERAPIES. NICHOL DRESSING TO RIGHT HIP C/D/I. PT CALLS APPROPRIATELY FOR ASSISTANCE. FALL PRECAUTIONS IN PLACE AND NURSING WILL CONTINUE TO MONITOR.
[2020-04-03 20:00] VITALS: BP 128/84
--- NOTE | 2020-04-04 05:23 | NUR ---
04-04-20 CARE TRANSFERRED 1899. PT AAOX4, VSS, RR EVEN AND NONLABORED ON RA, PT NICHOL DRESSING CLEAN, DRY AND INTACT. PT REPORTED PAIN AND MANAGED BY PO MEDICATION. ZERO S/S OF ACUTE DISTRESS NOTED, PT WILL CONTINUE TO BE MONITOR.
[2020-04-04 08:00] VITALS: BP 121/76
--- NOTE | 2020-04-04 19:08 | NUR ---
ASSUMED CARE OF PT AT 0700. PT IS A&OX4 AND VITAL SIGNS ARE STABLE. PT REPORTS PAIN, MANAGED WITH PO MEDICATION. REPORTS CONSTIPATION AND WAS GIVEN BOWEL MEDICATIONS THIS AM AND REPORTS LARGE BOWEL MOVEMENT THIS AFTERNOON. FALL PRECAUTIONS IN PLACE AND NURSING WILL CONTINUE TO MONITOR.
[2020-04-04 19:19] VITALS: BP 129/85
--- NOTE | 2020-04-04 22:25 | NUR ---
PT ALERT AND ORIENTED X 4. AMB TO BR WITH WALKER AND ASSIST X 1 WITHOUT DIFFICULTY. RIGHT HIP DRESSING C/D/I. PT C/O PAIN IN RIGHT LE AT START OF SHIFT. TRAMADOL GIVEN. PARTIAL PAIN RELIEF VERBALIZED. BED ALARM ON FOR SAFETY. PT APPEARS TO BE SLEEPING ON HOURLY ROUNDS.
[2020-04-05 08:16] VITALS: BP 137/80
[2020-04-05 19:40] VITALS: BP 140/75
--- NOTE | 2020-04-05 19:49 | NUR ---
ASSUMED CARE OF PT AT 0715. PT IS A&OX4. IS ON ROOM AIR. IS STABLE. DENIES PAIN AT THIS TIME IN RIGHT HIP. ICE THERAPY IN PLACE. FALL PRECUATIONS & HIP PRECAUTIONS MAINTAINED. NICHOL DRSG INTACT. HOURLY ROUNDING CONTINUED THIS SHIFT. LABS & VITALS REVIEWED. PT IS UP WITH 1 ASSIST, GB, WALKER. WILL CONTINUE TO MONITOR. CALL LIGHT WITHIN REACH.
--- NOTE | 2020-04-06 01:37 | NUR ---
UP TO TOILET WITH GAIT BELT, WALKER, AND STANDBY ASSIST. APPRECIATES TRAMADOL WITH SCHEDULED TYLENOL AT HS, AND NOW 4 OR 5 HOURS LATER HAVING RIGHT LEG PAIN AFTER BACK FROM TOILET. TOLERATING SCDs
[2020-04-06 09:29] VITALS: BP 126/80
--- NOTE | 2020-04-06 16:07 | NUR ---
ASSUMED CARE AT 0700. PT IS ALERT AND ORIENTATED. COMPLAINED OF L HIP PAIN AND TREATED WITH TRAMADOL 2 TABS WITH PARTIAL RELIEF OBTAINED. PARTICIPATING IN THERAPIES. SURGICAL DRESSING INTACT WITH MIN OLD DRAINAGE. WILL NOTIFY ORTHO REGARDING AMRIT. APPETITE GOOD. PLAN FOR DISCHARGE ON MONDAY. CONT TO MONITOR.
[2020-04-06 19:22] VITALS: BP 129/81
--- NOTE | 2020-04-07 01:56 | NUR ---
UP TO TOILET WITH GAIT BELT, WALKER, AND STANDBY ASSIST. TRAMADOL 100 MG SUFFIECIENT FOR PAIN CONTROL, DECLINED HS TYLENOL. REPOSITIONING SELF IN BED AND CAREFULLY FOLLOWING HIP PRECAUTIONS.
[2020-04-07 05:36] LABS: ABSOLUTE NEUTROPHILS 3.7 thou/uL (1.4-8.2); BASOPHILS 0.6 % (0.0-2.0); EOSINOPHILS 2.1 % (0.0-3.0); HEMATOCRIT 29.6 % (37.0-47.0); HEMOGLOBIN 9.9 gm/dL (12.0-15.0); LYMPHOCYTES 43.2 % (24.0-44.0); MCH 32.3 pg (26.0-34.0); MCHC 33.5 g/dL (28.0-37.0); MCV 96.3 fL (80.0-100.0); MONOCYTES 7.9 % (1.0-8.0); PLATELET COUNT 571 thou/uL (150-400); POLYS 46.2 % (36.0-66.0); RBC 3.07 mil/uL (4.20-5.00); RDW 13.7 % (10.5-14.5); WBC 7.9 thou/uL (4.0-11.0)
[2020-04-07 05:54] LABS: CALCIUM 8.9 mg/dL (8.5-10.1); CREATININE 0.7 mg/dL (0.6-1.0); MAGNESIUM 2.1 mg/dL (1.8-2.4)
[2020-04-07 08:00] VITALS: BP 122/73
--- NOTE | 2020-04-07 11:35 | NUR ---
Nutrition: Pt admit S/P periprosthetic Fx Right DAGO revision + ORIF. Seen due to LOS. PT eating well 75-100% of meals on regular diet, orders meals as desired. Stable weights. On vitamin D, B12, folic acid supplementation. 04/04 BM. Low nutrition risk.
--- NOTE | 2020-04-07 13:38 | NUR ---
team meeting, reccomendation: dressing set up, transfer, 200ft fww. possible move to the appartment mod I prior to dc home. stable will be removed prior to dc home. dc 4th [facility] pt only.
--- NOTE | 2020-04-07 16:23 | NUR ---
ASSUMED CARE OF PT AT 0700. PT IS A&OX4 AND VITAL SIGNS ARE STABLE. PT REPORTS PAIN TO RLE, MANAGED WITH PO MEDICATIONS. PT PARTICIPATED IN SCHEDULED THERAPIES. ORDERS FROM ORTHO TODAY TO REMOVE AMRIT AND PLACE STERI-STRIPS TO RLE. PT TO F/U IN OFFICE THE WEEK AFTER GRETTA. 38 AMRIT REMOVED FROM THE SURGICAL SITE, NO DRAINAGE, REDNESS OR EDEMA NOTED. PT TOLERATED PROCEDURE WELL. ORDERS FOR PT TO BE MOVED TO APARTMENT AND CAN BE MOD I IN ROOM. DISCUSSED WITH PATIENT FALL PRECAUTIONS WHEN MOD I. FALL PRECAUTIONS IN PLACE AND NURSING WILL CONTINUE TO MONITOR.
[2020-04-07 19:15] VITALS: BP 131/83
--- NOTE | 2020-04-08 00:06 | NUR ---
PT ALERT AND ORIENTED X 4. MODIFIED INDEPENDENT IN ROOM WITHOUT DIFFICULTY. RIGHT HIP INCISION C/D/I WITH STERI-STRIPS. PT REFUSED MIRALAX AT HS. PT C/O PAIN IN RIGHT KNEE. SCHEDULED TYLENOL GIVEN ORDERED. PT INSTRUCTED TO CALL IF SHE NEEDS TRAMADOL FOR PAIN. PT APPEARS TO BE SLEEPING ON HOURLY ROUNDS.
[2020-04-08 08:00] VITALS: BP 125/70
--- NOTE | 2020-04-08 11:02 | NUR ---
ASSUMED CARE OF PT AT 0700. PT IS A&OX4 AND VITAL SIGNS ARE STABLE. PT REPORTS PAIN, MANAGED WITH PO MEDICATIONS. PT PARTICIPATED IN SCHEDULED THERAPIES. PT MOD I IN ROOM AND CALLS APPROPRIATELY WHEN NEEDING ASSISTANCE. STERI-STRIPS TO RLE. FALL PRECAUTIONS IN PLACE AND NURSING WILL CONTINUE TO MONITOR.
[2020-04-08 19:09] VITALS: BP 128/78
--- NOTE | 2020-04-09 02:30 | NUR ---
UP MODIFIED INDEPENDENTLY IN ROOM, PAIN MED 4 HOURS AGO, SLEEPING NOW. INCISION EDGES WELL APPROXIMATE WITH INTACT STERISTRIPS. LOOKING FORWARD TO GOING HOME MONDAY AND IS PLANNING ON ASKING ORTHO ABOUT HOW LONG HIP PRECAUTIONS ARE FOR, SHE WANTS TO BE CAREFUL
[2020-04-09 08:00] VITALS: BP 120/74
--- NOTE | 2020-04-09 12:51 | NUR ---
ASSUMED CARE OF PT AT 0700. PT IS A&OX4 AND VITAL SIGNS ARE STABLE. PT REPORTS PAIN TO RIGHT HIP, MANAGED WITH PO MEDICATIONS, PARTICIPATED IN SCHEDULED THERAPIES. KPAD ORDERED TO MANAGE INCREASED HIP PAIN, NOTED ON 04/08. PT CALLS APPROPRIATELY FOR ASSISTANCE NEEDED AND IS UP MOD I IN ROOM. SURGICAL SITE TO RIGHT HIP WELL APPROXIMATED, STERI STRIPS IN PLACE, NO REDNESS, EDEMA OR DRAINAGE NOTED. FALL PRECAUTIONS IN PLACE AND NURSING WILL CONTINUE TO MONITOR.
[2020-04-09 20:00] VITALS: BP 133/77
--- NOTE | 2020-04-09 23:43 | NUR ---
PT ALERT AND ORIENTED X 4. MODIFIED INDEPENDENT IN ROOM WITH WALKER. RIGHT HIP INCISION C/D/I WITH STERI-STRIPS. PT C/O PAIN IN RIGHT HIP. TRAMADOL GIVEN AT START OF SHIFT. PT REFUSED TYLENOL AT HS. AK PAD TO RIGHT HIP. PT STATES HEAT HELPS A LOT WITH PAIN. PT APPEARS TO BE SLEEPING ON HOURLY ROUNDS.
[2020-04-10 07:15] VITALS: BP 120/65
[2020-04-10] MEDS ORDERED: LO-DOSE ASPIRIN81 M1 PO (08:05)
[2020-04-10] MEDS ORDERED: TYLENOL EXTRA500 MG PO (08:05)
[2020-04-10] MEDS ORDERED: VITAMIN B-12500 MCG PO (08:05)
[2020-04-10] MEDS ORDERED: FOLIC ACID0.4 MG PO (08:05)
[2020-04-10] MEDS ORDERED: ROBAXIN 750 MG750 MG PO (08:05)
[2020-04-10] MEDS ORDERED: LIDOPATCH1 EACH TRANSDERM (08:05)
[2020-04-10] MEDS ORDERED: VITAMIN D325 MC1 PO (08:05)
[2020-04-10 08:32] VITALS: BP 116/76
--- NOTE | 2020-04-10 10:36 | NUR ---
ASSUMED CARE AT 0700. PT IS ALERT AND ORIENTATED. PAIN IS STABLE WITH REST. ON SCHEDULED TYLENOL. SHE IS AMBULATING INDEPENDENTLY IN ROOM AND IS TRANSITION TO MOD I. SHE REPORTED HEATING PAD IS HELPING WITH MUSLCE PAIN IN R HIP. INCISION IS OPEN TO AIR WITH STERISTIPS IN PLACE. ELIZA HILTON SAW INCISION AND TO KEEP STERISTRIPS ON TILL IT FALLS OFF BY ITSELF. PLAN FOR DISCHARGE TODAY. DISCHARGE INSTRUCTION EDUCATED TO PT. SON WILL PICK HER UP AROUND 1430 TO 1500. ALL QUESTIONS AND CONCERNS ADDRESSED. WILL CONT TO MONITOR.
--- NOTE | 2020-04-10 16:16 | NUR ---
PT DISCHARGING TODAY TO HOME WITH RADHA BARNETT ( [facility]) SPOKE WITH JOSE IN INTAKE SHE RECEIVED DC ORDERS AND WILL CALL PT TO ARRANGE VISITS.
== END 2020-04-10 15:16 | disposition home health service (06) | DRG 561 ==
PROVIDERS: Internal Medicine; Nurse Practitioner; Nurse Practitioner Family; ADMIT Physical Medicine & Rehabilitation; ATTEND Physical Medicine & Rehabilitation
DX: M97.01XA Periprosthetic fracture around internal prosthetic right hip joint, initial encounter (principal); K59.00 Constipation, unspecified; D64.9 Anemia, unspecified; I10 Essential (primary) hypertension; G20 Parkinson's disease; Z86.73 Personal history of transient ischemic attack (TIA), and cerebral infarction without residual deficits; E53.8 Deficiency of other specified B group vitamins
CPT/HCPCS: 10112